=== PATIENT | female | born 1980 | race Caucasian/White ===

== ENCOUNTER 2023-04-02 11:28 | Day surgery (SDC) | payer OTHER ==
[2023-04-02] MEDS ORDERED: ZITHROMAX500 MG PO (14:54)
[2023-04-02] MEDS ORDERED: IBU400 MG PO (14:54)
== END 2023-04-02 16:50 | disposition home or self-care (01) ==
LOC: CIR.AMB 11:28
PROVIDERS: ATTEND Obstetrics & Gynecology
DX: N84.0 Polyp of corpus uteri (principal); N93.9 Abnormal uterine and vaginal bleeding, unspecified; Z20.822 Contact with and (suspected) exposure to COVID-19